=== PATIENT | male | born 1975 | race Caucasian/White ===

== ENCOUNTER 2019-10-04 10:25 | Emergency (ER) | payer OTHER ==
[~2019-10-04] VITALS: Ht 180.3 cm; Wt 80.0 kg
--- NOTE | 2019-10-04 10:35 | NUR ---
ALSO CO HEADACHE/DIZZY. KRISTIAN IN ROOM FOR EVAL. PIV/LABS IN PROGRESS. CALL DONYA.
[2019-10-04 10:56] LABS: BASOPHILS # (AUTO) 0.02 x10^3/uL (0-0.1); BASOPHILS % (AUTO) 0 % (0-1); EOSINOPHILS # (AUTO) 0.02 x10^3/uL (0-0.4); EOSINOPHILS % (AUTO) 0 % (1-7); LYMPHOCYTES # (AUTO) 2.07 x10^3/uL (1-3.4); LYMPHOCYTES % (AUTO) 34 % (22-44); MD NO; MEAN CORPUSCULAR HGB CONC 33.2 g/dL (33.2-36.2); MEAN PLATELET VOLUME 7.3 fL (7.4-10.4); MONOCYTES # (AUTO) 0.31 x10^3/uL (0.2-0.8); MONOCYTES % (AUTO) 5 % (2-9); NEUTROPHILS # (AUTO) 3.66 x10^3/uL (1.8-6.8); NEUTROPHILS % (AUTO) 60 % (42-75); PLATELET COUNT 338 x10^3/uL (130-400); RED CELL DISTRIBUTION WIDTH 13.4 % (9.4-14.8)
[2019-10-04] MEDS ORDERED: SODIUM CHLORIDE 0.9% 1,000ML IVBOLUS ONE (11:00)
[2019-10-04 11:06] LABS: ALBUMIN 4.4 g/dL (3.4-5.0); ANION GAP 8 mmol/L (5-15); CALCIUM 10.2 mg/dL (8.5-10.1); CHLORIDE 109 mmol/L (98-107); CREATININE 1.15 mg/dL (0.7-1.3)
[2019-10-04 11:11] LABS: TROPONIN I < 0.015 ng/mL (0.000-0.045)
--- NOTE | 2019-10-04 11:38 | NUR ---
pt still c/o L arm "asleep feeling" but denies actual cp/sob. to cta. hr improved to sr/st 90-low 100s. pt appears less anxious. as
[2019-10-04] MEDS ORDERED: OMNIPAQUE 350 MG/ML, 100ML BOTTLE ONE (11:43)
--- NOTE | 2019-10-04 11:53 | NUR ---
recheck, results wnl. as
--- NOTE | 2019-10-04 13:12 | NUR ---
lab at bedside for repeat trop. nad. sts tingling less in arm. as
[2019-10-04 13:40] LABS: TROPONIN I < 0.015 ng/mL (0.000-0.045)
--- NOTE | 2019-10-04 13:42 | NUR ---
2nd trop neg. recheck. as
[2019-10-04 14:16] VITALS: BP 132/87
== END 2019-10-04 14:18 | disposition home or self-care (01) ==
LOC: ED 14:03
DX: I10 Essential (primary) hypertension (principal); R07.9 Chest pain, unspecified; R00.0 Tachycardia, unspecified; R51 Headache; R20.0 Anesthesia of skin
CPT/HCPCS: 71045; 71275; 80048; 82040; 82962; 83880; 84484; 85025; 93005; 99285; J7030; Q9967